=== PATIENT | female | born 1995 | race Hispanic/Latino ===

== ENCOUNTER 2018-02-16 05:51 | Emergency (ER) | payer OTHER ==
[~2018-02-16] VITALS: Ht 162.6 cm; Wt 65.8 kg
[2018-02-16] MEDS ORDERED: MAGNESIUM/ALUMINUM/SIMETHICONE 30 ML UDC PO ONE (06:15)
[2018-02-16] MEDS ORDERED: ONDANSETRON HCL 4 MG ORAL DISINTEGRATING TAB SL ONE (06:15)
[2018-02-16] MEDS ORDERED: BELLADONNA ALK/PHENOBARBITAL 5 ML UDC PO ONE (06:15)
[2018-02-16] MEDS ORDERED: LIDOCAINE VISC 2% SOLN 15 ML UDC PO ONE (06:15)
[2018-02-16] MEDS ORDERED: PANTOPRAZOLE 40 MG 10ML VIAL IV ONE (06:15)
[2018-02-16] MEDS ORDERED: FAMOTIDINE 20 MG/2 ML VIAL IV ONE (06:15)
[2018-02-16 07:50] VITALS: BP 121/66
== END 2018-02-16 08:02 | disposition home or self-care (01) ==
LOC: FSED 05:51
DX: R10.13 Epigastric pain (principal); E87.6 Hypokalemia; K52.9 Noninfective gastroenteritis and colitis, unspecified
CPT/HCPCS: 80048; 80076; 81003; 81025; 85025; 93005; 96374; 96375; 99283

== ENCOUNTER 2020-05-07 16:49 | Emergency (ER) | payer SELFPAY ==
[~2020-05-07] VITALS: Ht 162.6 cm; Wt 68.9 kg
--- NOTE | 2020-05-07 17:04 | Emergency Department Note ---
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 Any updates have been documented here. Past Medical History Past Medical History: None Past Surgical History: None Social History Smoking Cessation: Never Smoker Alcohol Use: Social Any Illegal Drug Use: No TB Exposure/Symptoms: No Physically hurt or threatened: No Family History Family history of heart diseas: No Other Last Tetanus: UNK Any Pre-Existing Lines (PICC,: No Is patient up to date on immun: No Review of Systems Review of Systems Constitutional: Reports no symptoms EENTM: Reports no symptoms Cardiovascular: Reports as per HPI Respiratory: Reports no symptoms Gastrointestinal: Reports no symptoms Genitourinary: Reports no symptoms Musculoskeletal: Reports no symptoms Integumentary: Reports no symptoms Neurological: Reports no symptoms Psychological: Reports as per HPI Endocrine: Reports no symptoms Hematological/Lymphatic: Reports no symptoms Physical Exam Related Data Allergies: Coded Allergies: No Known Allergies (Unverified , 02/16/18) Vital signs reviewed: Yes Physical Exam CONSTITUTIONAL Constitutional: Present well-developed, Present well-nourished HENT HENT: Present normocephalic, Present atraumatic, Present oropharynx clear/moist, Present nose normal HENT L/R: Present left ext ear normal, Present right ext ear normal EYES Eyes: Reports PERRL, Reports conjunctivae normal NECK Neck: Present ROM normal PULMONARY Pulmonary: Present effort normal, Present breath sounds normal CARDIOVASCULAR Cardiovascular: Present regular rhythm, Present heart sounds normal, Present capillary refill normal, Present tachycardia GASTROINTESTINAL Abdominal: Present soft, Present nontender, Present bowel sounds normal GENITOURINARY Genitourinary: Present exam deferred SKIN Skin: Present warm, Present dry MUSCULOSKELETAL Musculoskeletal: Present ROM normal NEUROLOGICAL Neurological: Present alert, Present oriented x 3, Present no gross motor or sensory deficits PSYCHOLOGICAL Psychological: Present mood/affect normal, Present judgement normal Results Laboratory Lab results reviewed: Yes Laboratory comments Ddimer normal Imaging Imaging results reviewed: Yes Imaging Comments no acute Procedures 12 Lead ECG Interpretation ECG Interpretation : ECG: ECG 1 Assessment & Plan Medical Decision Making MDM anxiety, tachycardia Reassessment Reassessment time: 18:33 Reassessment doing better Assessment & Plan Final Impression: (1) Tachycardia (2) Anxiety Depart Disposition: HOME, SELF-custodial Meds Reported Medications Lansoprazole (Heartburn Treatment 24 Hour) 15 Mg Capsule.dr, DAILY 05/07/20 Amlodipine Besylate (AMLODIPINE BESYLATE) 5 Mg Tablet, 5 MG PO DAILY, #30 TAB 05/07/20 Physician Attestation Provider Attestation doing better, taking PO well. pt can be safely d/c MARYJANE JASSO MD May 07, 2020 17:04
--- OUTSIDE RECORDS SUMMARY | 2020-05-07 17:29 | XMS REPORT | Clinical Summary ---
Author Author [facility] ict Organization [facility] ict Address Unknown Phone Unavailable Care Team Providers Care Transitional Nurse Name Role Phone Yanna Garay DRAW IN HAND PCP [phone] Pcp, No PCP Unavailable Allergies No Known Allergies Medications End Date Status Medication Sig Dispensed Refills Start Date Active loratadine (CLARITIN) 10 Take 1 tablet 90 tablet 1 mg tabletIndications: by mouth 8 Sore throat (viral) daily. Active SUMAtriptan (IMITREX) 50 Take 1 tablet 9 tablet 3 mg tabletIndications: by mouth at 8 Migraine with aura and onset of without status headache. migrainosus, not Repeat after intractable 2 hours if needed. Maximum 200mg/24 hours.. Active ibuprofen (MOTRIN) 800 mg Take 1 tablet 60 tablet 1 tabletIndications: by mouth 8 Migraine with aura and every 8 hours without status as needed for migrainosus, not Pain. intractable Active omeprazole (PRILOSEC) 20 Take 1 60 capsule 1 1 mg delayed release capsule by 8 capsuleIndications: mouth 2 times Migraine with aura and daily. without status migrainosus, not intractable Active Problems Problem Noted Date Establishing care with new doctor, encounter for Encounter for health maintenance examination in adult 06/26/2017 Lipoma of abdominal wall 06/26/2017 Tension headache 09/25/2014 Family History Medical History Relation Name Comments Lipids Father lifestyle modificat ion, no meds Relation Name Status Comments Brother Alive Brother Alive Father Alive Mother Alive Sister Alive Sister Alive Social History Date Tobacco Use Types Packs/Day Years Used Never Smoker Smokeless Tobacco: Never Used Tobacco Cessation: Counseling Given: No Drinks/Week oz/Week Comments Alcohol Use No Food Insecurity Answer Date Recorded Within the past 12 months, you worried that your Never larissa e 08/18/2017 food would run out before you got money to buy more. Within the past 12 months, the food you bought Never true 08/18/2017 just didn't last and you didn't have mo taz to get more. Sex Assigned at Date Recorded Not on file Industry Job Start Date Occupation Not on file Not on file Not on file Travel End Travel History Travel Start No recent travel history available. Last Filed Vital Signs Not on file Plan of Treatment Health Maintenance Due Date Last Done Comments Cervical Cancer Scrn (3 2014 Yrs) IMM Influenza Seasonal 06/29/2020 Oct to November (>/= 19 yrs) Results Not on fileafter 05/07/2019 Insurance Type Payer Benefit Subscriber ID Effective Phone Address Plan / Dates Group [facility] xxxxxxxxxxxx 2017-P [address] [facility] [id number] [facility] [phone] [facility] SELF-PAY SELF-PAY xxxxxx 2018- [phone] [id number] [place] [address] Guarantor Name Account Relation to Date of Phone Billin g Address Type Patient JOE,JAKE Personal/F Head of [phone] [employer] (Home) [place], [place] [address] (Self) JAKE JOE Rakesh Head of 1995 [address] ([place]) [place] [address] (Self)
--- OUTSIDE RECORDS SUMMARY | 2020-05-07 17:29 | XMS REPORT | Continuity of Care Document ---
Author Author [facility] t Organization [facility] Address [address] [place] [address] Phone Unavailable Care Team Providers Care Soil Sampler Name Role Phone NO, PCP PCP Unavailable Problems Condition Name Condition Details Condition Category Status Onset Date Resolution Date Last Treatment Date Treating Clinician Comments Source Encounter for health maintenance examination in adult Encounter for health maintenance examination in adult Disease Active 2017-06-26 00:00:00 [facility] Lipoma of abdominal wall Lipoma of abdominal wall Disease Acti ve 2017-06-26 00:00:00 [facility] Tension headache Tension headache Disease Active 2014-09-25 00:00:00 [facility] Allergies, Adverse Reactions, Alerts This patient has no known allergies or adverse reactions. Family History Family Member Diagnosis Comments Start Date Stop Date Source Natural father Lipids Delmar Hea [facility] Social History Social Habit Start Date Stop Date Quantity Comments Source Sex Assigned At [facility] Alcohol intake 2019-03-03 00:00:00 2019-03-03 00:00:00 Current non-drinker of alcohol (finding) [facility] History SDOH Food Worry 2017-08-18 00:00:00 2017-08-18 00:00:00 1 [facility] History [facility] Food Scarcity 2017-08-18 00:00:00 2017-08-18 00:00:00 1 [facility] Smoking Status Start Date Stop Date Source Never smoker [facility] Medications Ordered Medication Name Filled Medication Name Start Date Stop Da te Current Medication? Ordering Clinician Indication Dosage Frequency Signature (SIG) Comments Components Source SUMAtriptan (IMITREX) 50 mg tablet 2018-07-17 00:00:00 Yes Migraine with aura and without status migrainosus, not intractable Take 1 tablet by mouth at onset of headache. Repeat after 2 hours if needed. Maximum 200mg/24 hours.. [facility] ibuprofen (MOTRIN) 800 mg tablet 2018-07-17 00:00:00 Yes Migraine with aura and without status migrainosus, not intractable 800mg Take 1 tablet by mouth every 8 hours as needed for Pain. [facility] omeprazole (PRILOSEC) 20 mg delayed release capsule 2017-09 00:00:00 Yes Migraine with aura and without status migrainosus, not intractab le 20mg Q.5D Take 1 capsule by mouth 2 times daily. [facility] loratadine (CLARITIN) 10 mg tablet 2017-10-29 00:00:00 Yes Sore throat (viral) 10mg QD Take 1 tablet by mouth daily. [facility] Procedures This patient has no known procedures. Plan of Care Planned Activity Planned Date Details Comments Source Future Scheduled Test 2020-06-29 00:00:00 IMM Influenza Seas onal Jun to November (>/= 19 yrs) [code = IMM Influenza Seasonal Jun to November (>/= 19 yrs)] [facility] Future Scheduled Test 2014 00:00:00 Screening for atnonino gnant neoplasm of cervix (procedure) [code = 562400520] [facility] Encounters Start Date/Time End Date/Time Encounter Type Admission Type [facility] Care Department Encounter ID Source 2018-08-06 00:00:00 2018-08-06 00:00:00 Outpatient [facility] [id number] [facility] 2018-07-17 12:21:01 2018-07-17 12:21:01 Outpatient [facility] [id number] [facility] 2018-02-16 05:51:00 2018-02-16 08:02:00 Departed Emergency Room [facility] [id number] [facility] 2018-01-21 08:06:40 2018-01-21 08:06:40 Outpatient [facility] [id number] [facility] 2017-10-29 10:48:27 2017-10-29 10:48:27 Outpatient [facility] [id number] [facility] 2017-08-18 07:38:26 2017-08-18 07:38:26 Outpatient [facility] [id number] [facility] 2017-07-09 07:32:06 2017-07-09 07:32:06 Outpatient [facility] [id number] [facility] 2017-07-09 07:26:30 2017-07-09 07:26:30 Outpatient [facility] [id number] [facility] 2017-06-26 10:56:52 2017-06-26 10:56:52 Outpatient [facility] [id number] [facility] Results This patient has no known results.
--- NOTE | 2020-05-07 17:43 | Diagnostic Imaging Report ---
EXAMINATION: CXR 1 VIEW - HOPD COMPARISON: None INDICATION: ^chest pain ^[id number] ^1730 DISCUSSION: Frontal view of the chest obtained at 1636 hours. HEART AND MEDIASTINUM: The cardiomediastinal silhouette is unremarkable. LINES: None. LUNGS/PLEURA: The lungs are well inflated and clear. No pneumonia or pulmonary edema. No pleural effusion or pneumothorax. BONES AND SOFT TISSUES: No focal osseous lesion. The soft tissues are normal. IMPRESSION: No acute cardiopulmonary disease. Signed by: Dr. Veronica Coleman MD on 05/07/2020 5:39 PM
[2020-05-07] MEDS ORDERED: AMLODIPINE BESYL5 MG PO (18:49)
[2020-05-07] MEDS ORDERED: HEARTBURN TREAT15 MG (18:49)
== END 2020-05-07 19:05 | disposition home or self-care (01) ==
LOC: FSED 16:49
DX: R00.0 Tachycardia, unspecified (principal); F41.9 Anxiety disorder, unspecified
CPT/HCPCS: 71045; 80053; 81003; 82553; 84484; 85025; 85379; 93005; 99284